=== PATIENT | female | born 1985 | race African-American/Black ===

== ENCOUNTER 2023-03-22 12:16 | Inpatient (IN) | payer MEDICAID, OTHER ==
[~2023-03-22] VITALS: Ht 157.5 cm; Wt 102.8 kg
[2023-03-22] MEDS ORDERED: FUROSEMIDE 100 MG/10ML VIAL IV ONE (12:30)
[2023-03-22 12:49] LABS: Basophils # (auto) 0.1 10 ^3/uL (0-0.2); Basophils % (auto) 0.9 % (0.0-2.0); Eosinophils # (auto) 0.1 10 ^3/uL (0-0.8); Eosinophils % (auto) 1.6 % (0.0-7.0); Hematocrit 37.8 % (36.0-46.0); Lymphocytes # (auto) 2.8 10 ^3/uL (0.4-5.4); Lymphocytes % (auto) 40.5 % (10.0-50.0); Mean Corpuscular Hgb Conc. 31.8 g/dL (32.0-36.0); Mean Corpuscular Volume 94.1 fL (80.0-100.0); Monocytes # (auto) 0.5 10 ^3/uL (0-1.3); Monocytes % (auto) 6.8 % (0.0-12.0); Neutrophils # (auto) 3.5 10 ^3/uL (1.6-8.6); Neutrophils % (auto) 50.2 % (37.0-80.0); Nucleated Red Blood Cells % 0.1 %; Red Blood Cells 4.02 10^6/uL (4.0-5.20); Red Cell Distribution Width 17.2 % (11.8-14.3)
[2023-03-22 12:50] VITALS: RESP 38; O2SAT 99
[2023-03-22 13:07] LABS: INR 1.13 (0.9-1.15); Partial Thromboplastin Time 24.8 SEC (24.5-34.5); Prothrombin Time 11.8 sec (9.3-11.8)
[2023-03-22 13:09] LABS: Alanine Aminotransferase 48 U/L (7-40); Albumin 3.9 g/dL (3.2-4.8); Alkaline Phosphatase 59 U/L (46-116); Anion Gap 8 (5-15); Aspartate Aminotransferase 39 U/L (13-40); BUN/Creatinine Ratio 26.3 (10.0-20.0); Bilirubin, Total 0.6 mg/dL (0.2-1.0); Blood Urea Nitrogen 21 mg/dL (9-23); Calcium 8.8 mg/dL (8.5-10.1); Carbon Dioxide 21 mmol/L (20-30); Chloride 114 mmol/L (98-107); Glucose 110 mg/dL (74-106); Potassium 4.4 mmol/L (3.5-5.1); Sodium 143 mmol/L (136-145); Total Protein 5.6 g/dL (5.7-8.2)
[2023-03-22] MEDS ORDERED: MORPHINE SULFATE INJ 2 MG/ml SYRG IV PRN (14:45)
[2023-03-22] MEDS ORDERED: ENALAPRILAT 1.25 MG/ML-1ML VIAL IV ONE (14:45)
[2023-03-22] MEDS ORDERED: NITROGLYCERIN 0.4 MG SL TAB SL PRN (14:45)
[2023-03-22 15:01] LABS: Base Excess -2.2 mmol/L (-2.0-2.0)
[2023-03-22 15:04] LABS: Urine WBC None Seen /hpf (0 - 5)
[2023-03-22 15:17] LABS: Urine Bacteria FEW /hpf (None Seen); Urine Blood TRACE /uL (Negative); Urine Clarity Clear (Clear); Urine Color Colorless (Yellow); Urine Protein, UAD Negative (Negative); Urine Specific Gravity 1.006 (1.001-1.035); Urine Urobilinogen Normal (Negative); Urine pH 5.5 (5.0-8.0)
[2023-03-22 15:32] LABS: Amphetamine Screen, Urine Neg (NEGATIVE); Benzodiazephine Screen, Urine Neg (NEGATIVE)
[2023-03-22 15:33] LABS: Barbiturate Scree,Urine Neg (NEGATIVE); Cannabinoid Screen, Urine Neg (NEGATIVE); Cocaine Screen, Urine Neg (NEGATIVE); Opiate Scree,Urine Neg (NEGATIVE); Phencyclidine Screen, Urine Neg (NEGATIVE)
[2023-03-22 16:06] VITALS: BP 136/86; PULSE 86; RESP 20; O2SAT 96
[2023-03-22 16:53] LABS: Triglycerides 60 mg/dL (< 150)
[2023-03-22 16:54] LABS: LDL Cholesterol 130 mg/dL (< 100)
[2023-03-22 16:55] LABS: Cholesterol 170 mg/dL (< 200); HDL Cholesterol 39 mg/dL (40-59)
[2023-03-22] MEDS: FUROSEMIDE 20 MG/2 ML VIAL IV SCH (18:00)
[2023-03-22 19:35] VITALS: PULSE 95; RESP 15; O2SAT 100
[2023-03-22] MEDS ORDERED: CARVEDILOL 3.125 MG TAB PO SCH (22:00)
[2023-03-23] VITALS (10 sets, daily range): BP systolic 103–121; BP diastolic 61–75; PULSE 91–105; RESP 16–20; TEMP 97.6–98.6; O2SAT 98–100
[2023-03-23] MEDS ORDERED: FURO1TAB33 PO (02:26)
[2023-03-23] MEDS ORDERED: ACET-1881 PO (02:26)
[2023-03-23] MEDS ORDERED: GABA-1250 PO ×2 (02:26→13:45)
[2023-03-23] MEDS ORDERED: LISI2.5T47 PO (02:26)
[2023-03-23] MEDS ORDERED: OXY5T PO (02:26)
[2023-03-23] MEDS ORDERED: ALBUAER3 IN (02:26)
[2023-03-23] MEDS ORDERED: METO25TA93 PO (02:26)
[2023-03-23] MEDS ORDERED: ALBUTEROL SULF 2.5 MG/0.5ML(0.5%) NEB SOLN NEB PRN (04:45)
[2023-03-23] MEDS: FUROSEMIDE 20 MG/2 ML VIAL IV SCH (05:36)
[2023-03-23 06:24] LABS: Basophils # (auto) 0 10 ^3/uL (0-0.2); Basophils % (auto) 0.4 % (0.0-2.0); Eosinophils # (auto) 0.1 10 ^3/uL (0-0.8); Eosinophils % (auto) 1.5 % (0.0-7.0); Hematocrit 34.3 % (36.0-46.0); Lymphocytes # (auto) 2.5 10 ^3/uL (0.4-5.4); Lymphocytes % (auto) 31.1 % (10.0-50.0); Mean Corpuscular Hemoglobin 29.6 pg (28.0-32.0); Mean Corpuscular Volume 92.6 fL (80.0-100.0); Monocytes # (auto) 0.7 10 ^3/uL (0-1.3); Monocytes % (auto) 8.2 % (0.0-12.0); Neutrophils # (auto) 4.8 10 ^3/uL (1.6-8.6); Neutrophils % (auto) 58.8 % (37.0-80.0); Nucleated Red Blood Cells % 0.1 %; White Blood Cell 8.2 10^3/uL (4.4-10.8)
[2023-03-23 06:26] LABS: Chloride 111 mmol/L (98-107); Potassium 4.2 mmol/L (3.5-5.1); Sodium 141 mmol/L (136-145)
[2023-03-23 06:27] LABS: Anion Gap 5 (5-15); Calcium 8.3 mg/dL (8.7-10.4); Carbon Dioxide 25 mmol/L (20-30)
[2023-03-23 06:32] LABS: BUN/Creatinine Ratio 16.9 (10.0-20.0); Blood Urea Nitrogen 15 mg/dL (9-23); Glucose 102 mg/dL (74-106)
[2023-03-23 06:33] LABS: Magnesium 1.8 mg/dL (1.6-2.6)
[2023-03-23] MEDS ORDERED: LISINOPRIL 5 MG TAB PO SCH (10:00)
[2023-03-23] MEDS ORDERED: CARVEDILOL 3.125 MG TAB PO SCH (10:00)
[2023-03-23] MEDS ORDERED: METOPROLOL SUCCINATE XL 50 MG TAB PO SCH (10:00)
[2023-03-23] MEDS ORDERED: FURO40TA4 PO ×2 (11:24)
[2023-03-23] MEDS ORDERED: ENAL2.5T11 PO ×3 (11:24→13:45)
[2023-03-23] MEDS ORDERED: POTA8TAB38 PO ×3 (11:24→13:45)
[2023-03-23] MEDS ORDERED: METO25TA36 PO ×3 (11:24→13:45)
[2023-03-23] MEDS ORDERED: ACETAMINOPHEN 500 MG TAB PO PRN (12:15)
[2023-03-23] MEDS ORDERED: ONDANSETRON HCL 4 MG/2 ML VIAL IV PRN (12:15)
[2023-03-23] MEDS ORDERED: FURO1TAB31 PO (13:45)
[2023-03-25 08:41] LABS: Hepatitis B Surface Antigen Negative (Negative)
[2023-03-25 09:05] LABS: Hepatitis C Antibody Negative (Negative)
== END 2023-03-23 15:50 | disposition home or self-care (01) | DRG 133 ==
LOC: ER 12:16 → EDBD 12:16 → TELE 14:43 → TELE-CENTR 23:44
PROVIDERS: ADMIT Nurse Practitioner Acute Care; ATTEND Nurse Practitioner Acute Care
PROC: 5A09357 Assistance with Respiratory Ventilation, Less than 24 Consecutive Hours, Continuous Positive Airway Pressure (ICD-10-PCS; principal; 2023-03-22)
DX: J96.01 Acute respiratory failure with hypoxia (principal); I50.23 Acute on chronic systolic (congestive) heart failure; I21.A1 Myocardial infarction type 2; I42.0 Dilated cardiomyopathy; I11.0 Hypertensive heart disease with heart failure; I16.9 Hypertensive crisis, unspecified; E66.01 Morbid (severe) obesity due to excess calories; G47.00 Insomnia, unspecified; J45.909 Unspecified asthma, uncomplicated; F32.A Depression, unspecified; F14.90 Cocaine use, unspecified, uncomplicated; Z91.148 Patient's other noncompliance with medication regimen for other reason; Z79.899 Other long term (current) drug therapy; Z68.41 Body mass index [BMI] 40.0-44.9, adult; Z82.5 Family history of asthma and other chronic lower respiratory diseases; Z79.891 Long term (current) use of opiate analgesic
CPT/HCPCS: 36415; 36600; 71045; 71275; 80048; 80053; 80061; 80307; 81001; 82805; 83735; 83880; 84484; 84702; 85025; 85379; 85610; 85730; 86803; 87340; 93005; 93306; 93970; 94660; 99291; G0378

== ENCOUNTER 2023-05-15 11:01 | Inpatient (IN) | payer MEDICAID ==
[~2023-05-15] VITALS: Ht 157.5 cm; Wt 98.5 kg
[~2023-05-15 11:01] MED LIST: ACET-1881 PO; ALBUAER3 IN; ENAL1TAB43 PO; FURO1TAB31 PO; FURO1TAB33 PO; GABA-1250 PO; LISI2.5T47 PO; METO25TA36 PO; METO25TA93 PO; OXY5T PO; POTA8TAB38 PO
[2023-05-15 11:20] VITALS: PULSE 70; RESP 20; O2SAT 98
[2023-05-15 11:30] LABS: Basophils # (auto) 0.1 10 ^3/uL (0-0.2); Basophils % (auto) 0.8 % (0.0-2.0); Eosinophils # (auto) 0.1 10 ^3/uL (0-0.8); Eosinophils % (auto) 1.8 % (0.0-7.0); Hematocrit 40.5 % (36.0-46.0); Hemoglobin 12.8 g/dL (12.2-16.2); Lymphocytes # (auto) 3.2 10 ^3/uL (0.4-5.4); Lymphocytes % (auto) 43.8 % (10.0-50.0); Mean Corpuscular Hemoglobin 28.9 pg (28.0-32.0); Mean Corpuscular Hgb Conc. 31.5 g/dL (32.0-36.0); Mean Corpuscular Volume 91.6 fL (80.0-100.0); Monocytes # (auto) 0.6 10 ^3/uL (0-1.3); Monocytes % (auto) 7.8 % (0.0-12.0); Neutrophils # (auto) 3.3 10 ^3/uL (1.6-8.6); Neutrophils % (auto) 45.8 % (37.0-80.0); Nucleated Red Blood Cells % 0.1 %; Red Blood Cells 4.43 10^6/uL (4.0-5.20); Red Cell Distribution Width 19.6 % (11.8-14.3); White Blood Cell 7.2 10^3/uL (4.4-10.8)
[2023-05-15 11:43] LABS: Alanine Aminotransferase 26 U/L (7-40); Albumin 4.2 g/dL (3.2-4.8); Alkaline Phosphatase 68 U/L (46-116); Anion Gap 6 (5-15); Aspartate Aminotransferase 34 U/L (13-40); Bilirubin, Total 0.6 mg/dL (0.2-1.0); Blood Urea Nitrogen 12 mg/dL (9-23); Carbon Dioxide 28 mmol/L (20-30); Chloride 108 mmol/L (98-107); Glucose 128 mg/dL (74-106); Potassium 4.4 mmol/L (3.5-5.1); Sodium 142 mmol/L (136-145); Total Protein 6.5 g/dL (5.7-8.2)
[2023-05-15] MEDS ORDERED: NITROGLYCERIN 0.4 MG SL TAB SL PRN (12:45)
[2023-05-15] MEDS ORDERED: MORPHINE SULFATE INJ 2 MG/ml SYRG IV PRN (12:45)
[2023-05-15] MEDS ORDERED: ALBUTEROL SULF HFA 90MCG INH 200DOSE IN SCH (12:45)
[2023-05-15] MEDS ORDERED: ONDANSETRON HCL 4 MG/2 ML VIAL IV PRN (12:45)
[2023-05-15 14:36] LABS: Urine Bacteria FEW /hpf (None Seen); Urine Blood Negative /uL (Negative); Urine Clarity HAZY (Clear); Urine Color Yellow (Yellow); Urine Hyaline Cast FEW /lpf (0 - 2); Urine Protein, UAD 1+ (Negative); Urine Specific Gravity 1.022 (1.001-1.035); Urine Urobilinogen Normal (Negative); Urine WBC 1 /hpf (0 - 5)
[2023-05-15] MEDS: FUROSEMIDE 40 MG/4 ML VIAL IV ONE (14:45)
[2023-05-15] MEDS: GABAPENTIN 300 MG CAP PO SCH (14:45)
[2023-05-15] MEDS: SODIUM CHLOR 0.9% PF (SALINE LOCK) 10ML VIAL/SYR IV SCH (14:45)
[2023-05-15] MEDS: FUROSEMIDE 40 MG/4 ML VIAL IV SCH (18:00)
[2023-05-15 20:14] VITALS: PULSE 102; RESP 22; O2SAT 97
[2023-05-15] MEDS ORDERED: ALBUTEROL SULF 2.5 MG/0.5ML(0.5%) NEB SOLN NEB PRN ×2 (20:45→22:00)
[2023-05-15] MEDS: ACETAMINOPHEN 325 MG TAB PO PRN (23:51)
[2023-05-15 23:56] VITALS: BP 112/74; PULSE 97; RESP 20; TEMP 99.3; O2SAT 97
[2023-05-16] VITALS (14 sets, daily range): BP systolic 91–140; BP diastolic 56–75; PULSE 82–101; RESP 18–24; TEMP 97.6–98.7; O2SAT 96–100
[2023-05-16] MEDS ORDERED: HYDR-4902 PO (01:46)
[2023-05-16] MEDS ORDERED: EMPA1TAB PO (01:48)
[2023-05-16] MEDS ORDERED: SACU1TAB PO (01:48)
[2023-05-16] MEDS ORDERED: ENALAPRIL MALEATE 2.5 MG TAB PO SCH (10:00)
[2023-05-16] MEDS: METOPROLOL SUCCINATE XL 50 MG TAB PO SCH (10:28)
[2023-05-16] MEDS: SACUBITRIL-VALSARTAN 24mg/26mg TAB PO SCH (10:28)
[2023-05-16] MEDS: EMPAGLIFLOZIN 10 MG TAB PO SCH (10:28)
[2023-05-16] MEDS: ATORVASTATIN 20 MG TAB PO SCH (21:36)
[2023-05-16] MEDS: ENOXAPARIN SOD 100 MG/1 ML SYRINGE SC SCH (22:00)
[2023-05-17] VITALS (12 sets, daily range): BP systolic 94–121; BP diastolic 55–72; PULSE 84–109; RESP 17–19; TEMP 97.4–98.3; O2SAT 96–100
[2023-05-17 05:41] LABS: Basophils # (auto) 0 10 ^3/uL (0-0.2); Basophils % (auto) 0.7 % (0.0-2.0); Eosinophils # (auto) 0.1 10 ^3/uL (0-0.8); Eosinophils % (auto) 2.1 % (0.0-7.0); Hematocrit 41.7 % (36.0-46.0); Hemoglobin 13.4 g/dL (12.2-16.2); Lymphocytes # (auto) 2.3 10 ^3/uL (0.4-5.4); Lymphocytes % (auto) 31.3 % (10.0-50.0); Mean Corpuscular Hemoglobin 29.2 pg (28.0-32.0); Mean Corpuscular Volume 91.1 fL (80.0-100.0); Monocytes # (auto) 0.6 10 ^3/uL (0-1.3); Monocytes % (auto) 8.7 % (0.0-12.0); Neutrophils # (auto) 4.1 10 ^3/uL (1.6-8.6); Neutrophils % (auto) 57.2 % (37.0-80.0); Nucleated Red Blood Cells % 0.1 %; Red Blood Cells 4.58 10^6/uL (4.0-5.20); Red Cell Distribution Width 19.7 % (11.8-14.3); White Blood Cell 7.2 10^3/uL (4.4-10.8)
[2023-05-17 05:57] LABS: Chloride 107 mmol/L (98-107); Potassium 4.4 mmol/L (3.5-5.1); Sodium 139 mmol/L (136-145)
[2023-05-17 05:58] LABS: Anion Gap 6 (5-15); Carbon Dioxide 26 mmol/L (20-30)
[2023-05-17 05:59] LABS: Calcium 8.9 mg/dL (8.5-10.1)
[2023-05-17 06:03] LABS: BUN/Creatinine Ratio 11.2 (10.0-20.0); Blood Urea Nitrogen 10 mg/dL (9-23); Glucose 100 mg/dL (74-106)
[2023-05-17] MEDS: APIXABAN 5 MG TAB PO SCH (10:28)
[2023-05-17 12:42] LABS: Amphetamine Screen, Urine Neg (NEGATIVE); Barbiturate Scree,Urine Neg (NEGATIVE); Benzodiazephine Screen, Urine Neg (NEGATIVE); Cannabinoid Screen, Urine Pos (NEGATIVE); Cocaine Screen, Urine Neg (NEGATIVE); Opiate Scree,Urine Neg (NEGATIVE); Phencyclidine Screen, Urine Neg (NEGATIVE)
[2023-05-17] MEDS: FUROSEMIDE 40 MG/4 ML VIAL IV ONE (15:23)
[2023-05-17] MEDS: FUROSEMIDE 40 MG/4 ML VIAL IV SCH (18:00)
[2023-05-18] VITALS (12 sets, daily range): BP systolic 89–128; BP diastolic 45–72; PULSE 85–121; RESP 17–20; TEMP 97.4–98.5; O2SAT 95–100
[2023-05-18 05:59] LABS: Chloride 104 mmol/L (98-107); Potassium 4.3 mmol/L (3.5-5.1); Sodium 138 mmol/L (136-145)
[2023-05-18 06:00] LABS: Anion Gap 6 (5-15); Calcium 9.1 mg/dL (8.5-10.1); Carbon Dioxide 28 mmol/L (20-30)
[2023-05-18 06:05] LABS: Blood Urea Nitrogen 16 mg/dL (9-23); Glucose 106 mg/dL (74-106)
[2023-05-18 06:15] LABS: Basophils # (auto) 0 10 ^3/uL (0-0.2); Basophils % (auto) 0.4 % (0.0-2.0); Eosinophils # (auto) 0.2 10 ^3/uL (0-0.8); Eosinophils % (auto) 2.5 % (0.0-7.0); Lymphocytes # (auto) 2.4 10 ^3/uL (0.4-5.4); Lymphocytes % (auto) 30.4 % (10.0-50.0); Mean Corpuscular Hemoglobin 29.4 pg (28.0-32.0); Mean Corpuscular Hgb Conc. 32.5 g/dL (32.0-36.0); Mean Corpuscular Volume 90.5 fL (80.0-100.0); Monocytes # (auto) 0.8 10 ^3/uL (0-1.3); Monocytes % (auto) 10.1 % (0.0-12.0); Neutrophils # (auto) 4.4 10 ^3/uL (1.6-8.6); Neutrophils % (auto) 56.6 % (37.0-80.0); Nucleated Red Blood Cells % 0.1 %; Red Blood Cells 4.75 10^6/uL (4.0-5.20); Red Cell Distribution Width 19.4 % (11.8-14.3); White Blood Cell 7.8 10^3/uL (4.4-10.8)
[2023-05-18] MEDS: BACLOFEN 10 MG TAB PO ONE (22:46)
[2023-05-19] VITALS (7 sets, daily range): BP systolic 87–108; BP diastolic 41–58; PULSE 93–102; RESP 15–20; TEMP 97.4–98.4; O2SAT 96–99
[2023-05-19 05:52] LABS: Basophils # (auto) 0.1 10 ^3/uL (0-0.2); Basophils % (auto) 0.7 % (0.0-2.0); Eosinophils # (auto) 0.3 10 ^3/uL (0-0.8); Eosinophils % (auto) 3.2 % (0.0-7.0); Hematocrit 44.9 % (36.0-46.0); Hemoglobin 14.5 g/dL (12.2-16.2); Lymphocytes # (auto) 2.8 10 ^3/uL (0.4-5.4); Lymphocytes % (auto) 34.5 % (10.0-50.0); Mean Corpuscular Hemoglobin 29.1 pg (28.0-32.0); Mean Corpuscular Hgb Conc. 32.2 g/dL (32.0-36.0); Mean Corpuscular Volume 90.5 fL (80.0-100.0); Monocytes # (auto) 0.9 10 ^3/uL (0-1.3); Monocytes % (auto) 10.8 % (0.0-12.0); Neutrophils # (auto) 4.1 10 ^3/uL (1.6-8.6); Neutrophils % (auto) 50.8 % (37.0-80.0); Nucleated Red Blood Cells % 0.1 %; Red Blood Cells 4.96 10^6/uL (4.0-5.20); Red Cell Distribution Width 19.5 % (11.8-14.3); White Blood Cell 8.1 10^3/uL (4.4-10.8)
[2023-05-19 06:02] LABS: Anion Gap 6 (5-15); Carbon Dioxide 30 mmol/L (20-30); Chloride 102 mmol/L (98-107); Potassium 4.3 mmol/L (3.5-5.1); Sodium 138 mmol/L (136-145)
[2023-05-19 06:03] LABS: Calcium 9.5 mg/dL (8.5-10.1)
[2023-05-19 06:08] LABS: BUN/Creatinine Ratio 22.9 (10.0-20.0); Blood Urea Nitrogen 22 mg/dL (9-23); Glucose 104 mg/dL (74-106)
== END 2023-05-19 13:51 | disposition home or self-care (01) | DRG 198 ==
LOC: ER 11:01 → TELE 13:06 → TELE-EAST 23:31
PROVIDERS: ADMIT Internal Medicine; ATTEND Internal Medicine Pulmonary Disease
DX: I24.9 Acute ischemic heart disease, unspecified (principal); I50.23 Acute on chronic systolic (congestive) heart failure; I27.20 Pulmonary hypertension, unspecified; I42.8 Other cardiomyopathies; I11.0 Hypertensive heart disease with heart failure; F14.10 Cocaine abuse, uncomplicated; E11.9 Type 2 diabetes mellitus without complications; E66.01 Morbid (severe) obesity due to excess calories; E78.5 Hyperlipidemia, unspecified; I48.0 Paroxysmal atrial fibrillation; I47.20 Ventricular tachycardia, unspecified; Z79.899 Other long term (current) drug therapy; Z79.891 Long term (current) use of opiate analgesic; Z79.1 Long term (current) use of non-steroidal anti-inflammatories (NSAID); Z82.5 Family history of asthma and other chronic lower respiratory diseases; Z68.39 Body mass index [BMI] 39.0-39.9, adult; Z91.199 Patient's noncompliance with other medical treatment and regimen due to unspecified reason; Z91.148 Patient's other noncompliance with medication regimen for other reason
CPT/HCPCS: 36415; 71045; 80048; 80053; 80307; 81001; 83036; 83735; 83880; 84443; 84484; 85025; 85049; 85379; 93005; 93306; 96374; G0378

== ENCOUNTER 2024-02-19 22:05 | Emergency (ER) | payer MEDICAID ==
[~2024-02-19] VITALS: Ht 157.5 cm; Wt 81.8 kg
[~2024-02-19 22:05] MED LIST changes: +EMPA1TAB PO; -ENAL1TAB43 PO; +HYDR-4902 PO; -LISI2.5T47 PO; -OXY5T PO; +SACU1TAB PO
--- NOTE | 2024-02-19 22:35 | ED.PDOC ---
SOB-HPI HPI Comments 38 year old female brought in by EMS presents to the ED with a chief complaint of shortness of breath onset 2 days. Per EMS, patient was experiencing shortness of breath for the past 2 days, was given 2 med neb treatments in route and O2 sat was 94% on RA. Patient states she woke up today experiencing cough with white phlegm, chest pain radiating to back and worsens with deep breath. Patient also states she used her inhaler and nebulizer at home but did not notice an improvement. She is currently on Lasix. Past medical history of CHF, HTN. No other symptoms or modifying factors present at this time. Chief Complaint: Shortness of Breath Time Seen by MD: 22:27 Reviewed notes: Medications, Allergies Information Source: Patient, Emergency Med Personnel Mode of Arrival: EMS Severity: Moderate Timing: Days Duration: Since onset Context: At Rest PE Risk Factors: None History of: CHF Prehospital treatment: Treatment (Med Neb) Associated Signs and Symptoms: Wheeze, Cough, Chest Pain Quality: Pressure Radiation: Back If cough with SOB: Productive, White Past Medical History PAST MEDICAL HISTORY: CHF, HTN Surgical History: Unknown PUBLIC RELATIONS SENIOR ASSOCIATE History: Denies all PUBLIC RELATIONS SENIOR ASSOCIATE Hx Family History Family History: Reviewed,noncontributory to illness Social History Smoker: Unknown Alcohol: Unknown Drugs: Unknown Lives In: Home Physical Exam General Appearance: Mild Distress, Normal HEENT: Normal ENT Inspection, Pharynx Normal, TMs Normal Neck: Full Range of Motion, Non-Tender, Normal, Normal Inspection Respiratory: Chest Non-Tender, Lungs Clear, No Accessory Muscle Use, No Respiratory Distress, Normal Breath Sounds Cardiovascular: No Edema, No JVD, No Murmur, No Gallop, Normal Peripheral Pulses, Regular Rate/Rhythm Breast Exam: Deferred Gastrointestinal: No Organomegaly, Non Tender, No Pulsatile Mass, Normal Bowel Sounds, Soft Genitalia: Deferred Pelvic: Deferred Rectal: Deferred Extremities: No calf tenderness, Normal capillary refill, Normal inspection, Normal range of motion, Non-tender, No pedal edema Musculoskeletal : Apperance: Normal Neurologic: Alert, upper extremity surgeon II-XII nml as Tested, No Motor Deficits, Normal Affect, Normal Mood, No Sensory Deficits Cerebellar Function: Normal Reflexes: Normal Skin: Dry, Normal Color, Warm Lymphatic: No Adenopathy Was a procedure done? Was a procedure done?: No Differential Dx Differential Diagnosis: Asthma, Bronchitis, CHF, COPD, Pneumonia, Pneumothorax, Pulmonary Embolism, Other X-Ray, Labs, Meds, VS Vital Signs Date Time Temp Pulse Resp B/P (MAP) Pulse Ox O2 Delivery O2 Flow Rate FiO2 02/20/24 04:15 17 17 96 Room Air* 0 21 02/20/24 04:15 98.6 98 17 120/62 (81) 96 98.6 02/20/24 01:57 108 20 98 Room Air 02/20/24 01:57 97.7 108 20 120/81 (94) 98 97.7 02/19/24 22:18 98.5 111 21 126/94 (105) 98 02/19/24 22:09 110 Lab Test 02/19/24 23:47 02/19/24 22:57 Range/Units Troponin I High Sensitivity 10 9 </=34 ng/L White Blood Count 7.0 4.4-10.8 10^3/uL Red Blood Count 4.44 4.0-5.20 10^6/uL Hemoglobin 14.3 12.2-16.2 g/dL Hematocrit 42.2 36.0-46.0 % Mean Corpuscular Volume 94.9 80.0-100.0 fL Mean Corpuscular Hemoglobin 32.1 H 28.0-32.0 pg Mean Corpuscular Hemoglobin Concent 33.8 32.0-36.0 g/dL Red Cell Distribution Width 15.2 H 11.8-14.3 % Platelet Count 241 140-450 10^3/uL Mean Platelet Volume 8.7 6.9-10.8 fL Neutrophils (%) (Auto) 61.9 37.0-80.0 % Lymphocytes (%) (Auto) 24.4 10.0-50.0 % Monocytes (%) (Auto) 10.4 0.0-12.0 % Eosinophils (%) (Auto) 2.6 0.0-7.0 % Basophils (%) (Auto) 0.7 0.0-2.0 % Neutrophils # (Auto) 4.3 1.6-8.6 10 ^3/uL Lymphocytes # (Auto) 1.7 0.4-5.4 10 ^3/uL Monocytes # (Auto) 0.7 0-1.3 10 ^3/uL Eosinophils # (Auto) 0.2 0-0.8 10 ^3/uL Basophils # (Auto) 0.1 0-0.2 10 ^3/uL Nucleated Red Blood Cells 0.0 % Sodium Level 141 136-145 mmol/L Potassium Level 3.9 3.5-5.1 mmol/L Chloride Level 105 98-107 mmol/L Carbon Dioxide Level 30 20-31 mmol/L Anion Gap 6 5-15 Blood Urea Nitrogen 12 9-23 mg/dL Creatinine 0.80 0.550-1.02 mg/dL Glomerular Filtration Rate Calc 95 >90 mL/min BUN/Creatinine Ratio 15.0 10.0-20.0 Serum Glucose 95 74-106 mg/dL Calcium Level 10.0 8.7-10.4 mg/dL Magnesium Level 2.1 1.6-2.6 mg/dL Total Bilirubin 0.2 0.2-1.0 mg/dL Aspartate Amino Transferase (AST) 15 13-40 U/L Alanine Aminotransferase (ALT) 11 7-40 U/L Alkaline Phosphatase 95 46-116 U/L B-Type Natriuretic Peptide 57.61 0-100 pg/mL Total Protein 7.3 5.7-8.2 g/dL Albumin 4.5 3.2-4.8 g/dL Current Medications Medications (Trade) Dose Ordered Sig/Grant Route Start Time Stop Time Status Last Admin Sodium Chloride 250 ml @ 250 mls/hr Q1H ONCE IV 02/19/24 22:45 02/19/24 23:44 DC 02/19/24 22:45 Prednisone 40 mg ONCE ONCE PO 02/19/24 22:45 02/19/24 22:46 DC 02/20/24 01:56 Albuterol (Ventolin Medneb) 5 mg ONCE ONCE NEB 02/19/24 22:45 02/19/24 22:46 DC 02/19/24 23:05 Ipratropium [place] (Atrovent Medneb) 0.5 mg ONCE ONCE NEB 02/19/24 22:45 02/19/24 22:46 DC 02/19/24 23:04 Magnesium Sulfate/ Dextrose 100 ml @ 100 mls/hr Q1H IV 02/19/24 22:45 02/20/24 00:44 DC 02/20/24 03:[address] [address] Ph: [phone] DIAGNOSTIC IMAGING Diagnostic Imaging Report : [id number] Signed PATIENT: TYRESE CRISOSTOMO ACCT: [id number] UNIT: [id number] : 1985 LOC: ER ROOM / BED: / AGE / SEX: 38 / F ADM STATUS: REG ER SERVICE 32 ORDERING PHYSICIAN: TAYLOR BARRY MD PROCEDURE(s): CXR1 - CHEST XRAY 1 VIEW REASON: SOB ORDER NUMBER(s): [id number], ACCESSION NUMBER(s): [id number] CHEST RADIOGRAPH Indication: SOB Technique: Single frontal view of the chest was obtained Comparison: XY CHEST PORTABLE on DOS: 05/15/23, XY CHEST PORTABLE on DOS: 03/23/23, XY CHEST PORTABLE on DOS: 03/22/23 FINDINGS: Lines and Tubes: None Lungs: No focal consolidation. Pleura: No effusion. No pneumothorax. Cardiomediastinal contours: Unremarkable Bones: No acute osseous abnormality. IMPRESSION: 1. No acute cardiopulmonary disease. 2. No infiltrates atelectasis or pneumothorax. ATED BY: JEAN BACA Jr., DO DICTATED DATE/TIME: 02/19/242258 SIGNED BY: JEAN BACA Jr., SIGNED DATE/TIME: 02/19/242258 CC: Time of 1ST Reevaluation: 01:00 Reevaluation 1ST: Improved Patient Education/Counseling: Diagnosis, Treatment Family Education/Counseling: Diagnosis, Treatment Additional Information I reviewed the following notes from patient's past medical encounters: The following tests were ordered, and results were reviewed by me: TROP, CBC, CMP, BNP, MAGNESIUM, TROP, XY CHEST 1 VIEW, RAPID INFLUENZA A&B Additional Information was gathered from interviewing the following independent historians: EMS I reviewed and agreed with the following test results read by other providers: XY CHEST 1 VIEW I discussed treatment and results with medical personnel and: patient Departure 1 Departure Time of Disposition: 01:00 Impression: Primary Impression: COPD with acute exacerbation Disposition: HOME / SELF CARE / HOMELESS Condition: Stable e-Prescriptions Prednisone (Prednisone) 20 Mg Tab 20 MG PO BID for 5 Days, #10 TAB Prov: TAYLOR BARRY MD 02/20/24 Azithromycin (Azithromycin) 500 Mg Tab 1 TAB PO DAILY for 7 Days, #7 TAB Prov: TAYLOR BARRY MD 02/20/24 Albuterol Sulfate (Albuterol Sulfate Hfa) 108 Mcg/Act Aer 108 MCG IN Q6HP PRN for 10 Days, #1 AER Prov: TAYLOR BARRY MD 02/20/24 Discharged With: Self Critical Care Note Critical Care Time?: No Stability Stability form required: No Heart Score Heart Score: Heart Score Response (Comments) Value History Slightly Suspicious 0 EKG Normal 0 Age <45 0 Risk Factors 1 or 2 risk factors 1 Troponin Normal limit 0 Total 1 I personally scribed for TAYLOR BARRY MD ([email or web address]) on 02/19/24 at 22:35. Electronically submitted by Annmarie Hughes ([email or web address]). I personally scribed for TAYLOR BARRY MD ([email or web address]) on 02/19/24 at 22:37. Electronically submitted by Annmarie Hughes ([email or web address]). I personally scribed for TAYLOR BARRY MD ([email or web address]) on 02/19/24 at 23:24. Electronically submitted by Annmarie Hughes ([email or web address]). TAYLOR BARRY MD Feb 19, 2024 22:35
[2024-02-19] MEDS: SODIUM CHLORIDE 0.9% 250 ML IV ONE (22:45)
--- NOTE | 2024-02-19 23:01 | DVH ---
CHEST RADIOGRAPH Indication: SOB Technique: Single frontal view of the chest was obtained Comparison: XY CHEST PORTABLE on DOS: 05/15/23, XY CHEST PORTABLE on DOS: 03/23/23, XY CHEST PORTABLE o n DOS: 03/22/23 FINDINGS: Lines and Tubes: None Lungs: No focal consolidation. Pleura: No effusion. No pneumothorax. Cardiomediastinal contours: Unremarkable Bones: No acute osseous abnormality. IMPRESSION: 1. No acute cardiopulmonary disease. 2. No infiltrates atelectasis or pneumothorax.
[2024-02-19] MEDS: IPRATROPIUM BROM 0.5 MG/2.5ML INH SOL NEB ONE (23:04)
[2024-02-19] MEDS: ALBUTEROL SULF 2.5 MG/0.5ML(0.5%) NEB SOLN NEB ONE (23:05)
[2024-02-19 23:16] LABS: Basophils # (auto) 0.1 10 ^3/uL (0-0.2); Basophils % (auto) 0.7 % (0.0-2.0); Eosinophils # (auto) 0.2 10 ^3/uL (0-0.8); Eosinophils % (auto) 2.6 % (0.0-7.0); Hematocrit 42.2 % (36.0-46.0); Hemoglobin 14.3 g/dL (12.2-16.2); Lymphocytes # (auto) 1.7 10 ^3/uL (0.4-5.4); Lymphocytes % (auto) 24.4 % (10.0-50.0); Mean Corpuscular Hemoglobin 32.1 pg (28.0-32.0); Mean Corpuscular Hgb Conc. 33.8 g/dL (32.0-36.0); Mean Corpuscular Volume 94.9 fL (80.0-100.0); Monocytes # (auto) 0.7 10 ^3/uL (0-1.3); Monocytes % (auto) 10.4 % (0.0-12.0); Neutrophils # (auto) 4.3 10 ^3/uL (1.6-8.6); Neutrophils % (auto) 61.9 % (37.0-80.0); Platelet Count (auto) 241 10^3/uL (140-450); Red Blood Cells 4.44 10^6/uL (4.0-5.20); Red Cell Distribution Width 15.2 % (11.8-14.3)
[2024-02-19 23:34] LABS: Alanine Aminotransferase 11 U/L (7-40); Albumin 4.5 g/dL (3.2-4.8); Alkaline Phosphatase 95 U/L (46-116); Anion Gap 6 (5-15); Aspartate Aminotransferase 15 U/L (13-40); Blood Urea Nitrogen 12 mg/dL (9-23); Carbon Dioxide 30 mmol/L (20-31); Chloride 105 mmol/L (98-107); Glucose 95 mg/dL (74-106); Magnesium 2.1 mg/dL (1.6-2.6); Potassium 3.9 mmol/L (3.5-5.1); Sodium 141 mmol/L (136-145)
[2024-02-19 23:35] LABS: Total Protein 7.3 g/dL (5.7-8.2)
[2024-02-20 00:08] LABS: Bilirubin, Total 0.2 mg/dL (0.2-1.0)
[2024-02-20] MEDS: MAGNESIUM SULFATE 1GM/100ML 100 ML IV SCH (01:54)
[2024-02-20] MEDS: predniSONE 20 MG TAB PO ONE (01:56)
[2024-02-20] MEDS ORDERED: AZIT500T66 PO (02:40)
[2024-02-20] MEDS ORDERED: PRED20TA2 PO (02:40)
[2024-02-20] MEDS ORDERED: ALBU108A5 IN (02:40)
[2024-02-20] MEDS: MAGNESIUM SULFATE 1GM/100ML 100 ML IV ONE (03:08)
[2024-02-20 04:15] VITALS: BP 120/62; PULSE 17; RESP 17; TEMP 98.6; O2SAT 96
--- NOTE | 2024-02-22 12:42 | ECG ---
[facility] Test Date: 2024-02-19 Test Time: 22:09:17 Pat Name: TYRESE CRISOSTOMO Department: ER Room: Gender: F Product Development Worker: PADILLA : 1985 Requested By: TAYLOR BARRY Order Number: [id number] Reading MD: Reinaldo Mariano Measurements Intervals [place] Rate: 110 P: 67 MA: 139 QRS: -40 QRSD: 96 T: 98 QT: 348 QTc: 471 Interpretive Statements Sinus tachycardia Biatrial enlargement Left anterior fascicular block Abnormal R-wave progression, late transition Left ventricular hypertrophy Electronically Signed On 02-22-2024 17:54:53 PST by Reinaldo Mariano Please click the below link to view image of tracing.
== END 2024-02-20 04:23 | disposition home or self-care (01) ==
LOC: ER 22:05 → EDBD 22:05 → ER 02-20 04:23
DX: J44.1 Chronic obstructive pulmonary disease with (acute) exacerbation (principal); I11.0 Hypertensive heart disease with heart failure; I50.9 Heart failure, unspecified; Z79.899 Other long term (current) drug therapy
CPT/HCPCS: 36415; 71045; 80053; 83735; 83880; 84484; 85025; 93005; 94640; 96361; 96365; 96366; 99285; J3475; J7512